=== PATIENT | female | born 1955 | race Caucasian/White ===

== ENCOUNTER 2024-08-22 12:48 | Emergency (ER) | payer OTHER, SELFPAY ==
[2024-08-22 12:58] VITALS: BP 152/88
[2024-08-22] MEDS: ADACEL 0.5 ML IM (14:27)
[2024-08-22] MEDS: KEFLEX 500 MG PO (14:27)
--- NOTE | 2024-08-22 14:56 | ED.GENMED ---
History of Present Illness
General
Chief Complaint: Skin Surface Trauma
Source: patient
Exam Limitations: none
Time Seen by Provider: 08/22/24 13:38
Nursing documentation reviewed up to this point in time: agreed with
History of Present Illness
History of Present Illness:
68-year-old female with past medical history of hyperlipidemia presenting to the emergency department today with concerns of laceration to the right pinky finger at the very distal aspect that occurred prior to arrival via hedge tremor. Was
initially seen at urgent care was irrigated and sent to the ER. No sensation of the very distal aspect of the finger distal to the partial distal avulsion. Denies any additional injuries otherwise good range of motion strength of all joints.
Review of Systems
Review of Systems
Allergies reviewed?: Yes
All Other Systems: ROS reviewed and negative except as documented in HPI and ROS
Phy Exam
Physical Exam
Physical Exam:
GENERAL: Alert , in no apparent distress
EYE: pupils equal and reactive
NECK: Supple, no significant adenopathy.
ENT: o/p clr, mmm.
CARDIAC: Regular rate and rhythm .
LUNGS: Clear breath sounds bilaterally, no acute respiratory distress, no wheezes/rales/rhonchi
ABDOMEN: Soft, without focal tenderness, no r/g, no cvat
NEUROLOGICAL: Alert and oriented, no focal neuro deficits
SKIN: Distal fingertip avulsion of the pulp of the right pinky finger. Small mount involvement of the nailbed but otherwise avulsion is mainly to the pulp of the finger. Total laceration size of 1.5 cm. Good range of motion and strength of the
finger warm and dry, skin intact.
MUSCULOSKELETAL: No edema, well perfused.
PSYCH: Normal and appropriate interaction.
Course
Orders/Labs/Results
Orders:
Orders
08/22/24 13:44
Cephalexin Monohydrate [Keflex] 500 mg PO NOW STA
Tetanus/Diphth/Acelpertussis [Adacel] 0.5 ml IM .ONCE ONE
CR Hand - Right Min 3 Views Urgent
Comment:
Reason For Exam: pinky finger fingertip avulsion
Vital Signs
Initial and Last Documented VS:
Initial Vital Signs
Temp Pulse Resp BP Pulse Ox
98.7 F 90 16 152/88 96
08/22/24 12:58 08/22/24 12:58 08/22/24 12:58 08/22/24 12:58 08/22/24 12:58
Last Documented Vital Signs
Temp Pulse Resp BP Pulse Ox
98.7 F 90 16 152/88 96
08/22/24 12:58 08/22/24 12:58 08/22/24 12:58 08/22/24 12:58 08/22/24 12:58
Procedures
Laceration Closure
Right Distal Fifth Finger:
Status of Wound: clean
Size of Wound in cm: 1.5
Description of Wound Edges: sharp
Preparation: cleaned with saline
Anesthesia: 1% Lidocaine and Digital-Regional
Revision/Debridement: routine- no revision and irrigate-direct pressure
Wound exploration: explored to base- no FB and no tendon involvement
Type of Closure: single layer closure
Number of sutures: 5
Additional information:
4-0 Monocryl
MDM/Problems Addressed
MDM/Problems Addressed:
68-year-old female presenting to the emergency department today after a laceration occurring to her right distal pinky via hedge tremor prior to arrival. She was given updated tetanus shot and started on antibiotics. X-ray showing a very distal
fingertip avulsion. She was given Keflex prior to this result. This was irrigated very thoroughly and closed with 5 dissolving stitches. Case was discussed with hand surgery that will follow her up closely. She was splinted as well prior to
discharge.
*Critical Care Note
Total Time (30-74mins, 75-104mins- exclusive of procedures): Not Applicable
ED Attending Note
-
Portions of this chart may have been created with voice recognition software.� Occasional wrong word or��sound alike� substitutions may have occurred due to the inherent limitations of voice recognition software.
Discharge Plan
Departure
Patient Disposition: Home (Routine Discharge)
Date of Disposition: 08/22/24
Time of Disposition: 14:59
Patient with high blood pressure during this ER visit?: Yes
Condition: Good
Covid-19: Not Applicable
Discharge Problem:
Avulsion of fingertip, Fracture, finger, distal phalanx
Instructions: Laceration Repair With Stitches (DC), BLOOD PRESSURE
Prescriptions:
New
cephalexin 500 mg capsule
500 mg PO QID 3 Days Qty: 12 0RF
Referrals:
Ronal Grant MD [Active] - Follow up in 5-7 days
Lior George DO [Family Provider] -
Activity Restrictions/Additional Instructions:
You came to the emergency department today with concerns of a laceration to your pinky finger. This was cleaned thoroughly and closed with dissolving stitches. Please follow-up with the hand doctor. Please take the antibiotics 4 times daily for
the next 3 days. Please also wear the splint. Return to the emergency department for any worsening, new or concerning symptoms.
Interventions
Interventions:
*Risk Screen - Suicide Last Done: 08/22/24 12:58
*General Assessment Last Done: 08/22/24 12:58
*Neglect/Abuse Screening Last Done: 08/22/24 12:58
*ED COVID-19 Vaccine History Last Done: 08/22/24 12:58
ED-Skin Assessment Last Done: 08/22/24 13:13
Discharge Date and Time
Print Language: [email or web address]
[2024-08-22 15:25] VITALS: BP 147/91
== END 2024-08-22 15:26 | disposition home or self-care (01) ==
LOC: EMR 12:48
PROVIDERS: EMERGENCY PHYSICIAN Student in an Organized Health Care Education/Training Program; FAMILY PHYSICIAN Family Medicine
DX: S61.216A Laceration without foreign body of right little finger without damage to nail, initial encounter (principal); S62.636A Displaced fracture of distal phalanx of right little finger, initial encounter for closed fracture; W29.3XXA Contact with powered garden and outdoor hand tools and machinery, initial encounter; Z23 Encounter for immunization
CPT/HCPCS: 99283; 12001; 90471; 73130; 90715